=== PATIENT | female | born 1950 | race Caucasian/White ===

== ENCOUNTER 2016-07-17 13:42 | Outpatient (CLI) ==
[2013-11-17 13:44] VITALS: BMI 51.1
--- NOTE | 2016-07-17 16:09 | US ---
Examination: Lacy-scale and real-time color Doppler imaging of the right lower extremity venous str uctures to rule out deep venous thrombosis. Comparison: 04/23/2011. Reason for study: Right leg pain and swelling. FINDINGS: There is spontaneous flow with respiratory augmentation and venous compression seen withi n the right common femoral, greater saphenous, profunda, superficial femoral, popliteal, and peronea l veins. The posterior tibial and anterior tibial veins were not identified secondary to patient's body habit us and edema. Impression: 1. No evidence of deep venous thrombosis in the visualized right lower extremity deep venous system. 2. The posterior tibial and anterior tibial veins were not identified secondary to the patient's kady dy habitus and edema. Cannot rule out the possibility of deep venous thrombus within those two stru ctures.
== END 2016-07-17 13:43 | disposition home or self-care (01) ==
LOC: RAD 13:42
DX: M79.89 Other specified soft tissue disorders (principal)

== ENCOUNTER 2016-07-25 16:01 | Emergency (ER) ==
--- NOTE | 2016-07-25 16:13 | ED.PDOC ---
General ED Provider: Dr. MARILY CALDERON JR Chief Complaint: Back Pain Stated Complaint: Lumbar pain rt side. Radiates down rt leg. Pt staes "It's sciatica." Has tramodol at home. Not helping.[ End ]98.5 77 20 95% 157/93 . tramadol at 1220 5 days of pain right sciatic radiation has had intermittent symptoms on left not treated called PMD no benefit one flexeril no benefit tramadol MRI not yet scheduled unable to hold still for mr of right leg - when at dentist Lortab ineffective for pain Time Seen by Physician: 16:13 Mode of Arrival: Walk-In Information Source: Patient Exam Limitations: No limitations Primary Care Provider: RAQUEL BECKER Nursing and Triage Documentation Reviewed and Agree: No Review of Systems - Review Of Systems Constitutional: Reports: Malaise Eyes: Reports: No symptoms Ears, Nose, Mouth, Throat: Reports: No symptoms Respiratory: Reports: No symptoms Cardiac: Reports: No symptoms GI: Reports: No symptoms : Reports: No symptoms Musculoskeletal: Reports: Other (pain and burning down righ tleg no rash negative straight leg raise) Skin: Reports: No symptoms Neurological: Reports: Other (pain with use or right leg ) Endocrine: Reports: No symptoms Hematologic/Lymphatic: Reports: No symptoms All Other Systems: Other Past Medical History - Past Medical History Endocrine: Reports: DM 2 Cardiovascular: Reports: Hypertension Respiratory: Reports: None Hematological: Reports: None Gastrointestinal: Reports: None Genitourinary: Reports: None Neuro/Psych: Reports: Anxiety, Depression Musculoskeletal: Reports: Arthritis Cancer: Reports: None Last Menstrual Period: unknown - Surgical History General Surgical History: Reports: None - Family History Family History: Reports: Unknown - Social History Smoking Status: Current every day smoker, Heavy tobacco smoker Hx Substance Use: No Alcohol Screening: None Physical Exam - Physical Exam Appearance: Well-appearing, Obese Pain Distress: Moderate Eyes: KRISTINE, EOMI, Conjunctiva clear Neck: Supple Respiratory: Airway patent Cardiovascular: RRR Musculoskeletal: Normal strength, ROM intact, No edema, No calf tenderness Skin: Warm, Dry, Normal color Neurological: Sensation intact, Motor intact, Reflexes intact, Cranial nerves intact, Alert, Oriented Critical Care Note - Critical Care Note Total Time (mins): 0 Course - Course Orders, Labs, Meds: Orders Category Date Time Status Hydromorphone HCl/Pf [Dilaudid 2 mg/ml Syringe] MEDS 07/25/16 17:58 Discontinued 2 mg IM ONCE STA Morphine Sulfate [Morphine 4 mg/ml Syringe] MEDS 07/25/16 17:14 Discontinued 4 mg IM ONCE STA Orphenadrine Citrate [Norflex] MEDS 07/25/16 16:28 Discontinued 60 mg IM ONCE STA Medications Discontinued Medications Generic Name Dose Route Start Last Admin Trade Name Freq PRN Reason Stop Dose Admin Hydromorphone HCl 2 mg 07/25/16 17:58 07/25/16 18:20 Dilaudid 2 Mg/Ml Syringe IM 07/25/16 17:59 2 mg ONCE STA Administration Morphine Sulfate 4 mg 07/25/16 17:14 07/25/16 17:34 Morphine 4 Mg/Ml Syringe IM 07/25/16 17:15 4 mg ONCE STA Administration Orphenadrine Citrate 60 mg 07/25/16 16:28 07/25/16 16:38 Norflex IM 07/25/16 16:29 60 mg ONCE STA Administration Vital Signs: Temp Pulse Resp BP Pulse Ox 07/25/16 16:02 98.5 F 77 20 157/93 H 95 Departure - Departure Time of Disposition: 18:40 Disposition: HOME SELF-CARE Discharge Problem: Right leg pain Instructions: Leg Pain (ED), Sciatica (ED) Condition: Fair Pt referred to PMD for follow-up: Yes Additional Instructions: follow up with PMD referral to neurologist or neurosurgeon is through regular physician return if loss of bladder control unable to walk or fever over 101.0 call PMD on Wednesday Prescriptions: Hydrocodone Bit/Acetaminophen [Chester 5-325] 1 - 2 tab PO Q6HR PRN #12 tablet PRN Reason: pain Allergies/Adverse Reactions: Allergies bacitracin [From Neosporin ([id number])] Adverse Reaction (Verified 07/25/16 16:10) bacitracin zinc [From Neosporin (tyh-syt-lefhr)] Adverse Reaction (Verified 10/05 16:10) metformin Adverse Reaction (Verified 07/25/16 16:10) neomycin sulfate [From Neosporin (osz-ejo-gfycy)] Adverse Reaction (Verified 10/05 16:10) polymyxin B [From Neosporin ([id number]-nrw-qndlb)] Adverse Reaction (Verified 16:10) Home Medications: Ambulatory Orders Promethazine HCl [Phenergan Tab] 25 mg PO DAILY PRN 11/17/13 Hydrocodone Bit/Acetaminophen [Chester 5-325] 1 - 2 tab PO Q6HR PRN #12 tablet 10/05
[2016-07-25 16:17] VITALS: BP 157/93; TEMP 98.5; BMI 45.1
[2016-07-25] MEDS ORDERED: NORFLEX IM STA (16:28)
[2016-07-25] MEDS ORDERED: MORPHINE 4 MG/ML SYRINGE IM STA (17:14)
[2016-07-25] MEDS ORDERED: DILAUDID 2 MG/ML SYRINGE IM STA (17:58)
== END 2016-07-25 19:13 | disposition home or self-care (01) ==
LOC: ED 16:01
DX: M54.41 Lumbago with sciatica, right side (principal); I10 Essential (primary) hypertension; E11.9 Type 2 diabetes mellitus without complications; F17.210 Nicotine dependence, cigarettes, uncomplicated
CPT/HCPCS: 96372; 99282

== ENCOUNTER 2016-09-10 14:00 | Outpatient (RCR) ==
--- NOTE | 2016-08-28 10:51 | RS.OPPTEV2 ---
Date of Note: 08/26/16 Visit #: 1 Date of Evaluation: 08/26/16 Payer Source: Medicaid Date of Onset/Injury/Change in Status: 07/19/16 Treatment Diagnosis: lumbar radiculopathy History of Condition/Mechanism of Injury:: States she had an onset of severe pain on 07/19/16, with no known cause. Patient states she has had a history of back pain, but nothing that has affected her ability to walk or stand like this onset has. Prior Level of Function.....Patient was independent with: ADL's, Self Care, Caregiving, Ambulation/Mobility, Community Integration/Access Functional Limitations: Sleep, Self Care, ADL's, Reaching, Pushing, Pulling, Lifting, Carrying, Sitting, Standing, Bending, Squatting, Ambulation, Community Access/Integration Current Subjective/complaints:: Patient reports she has been unable to walk long distances or stand for a prolonged period of time without a walker since the intense pain started. Reports she has been to the ER three times because of the pain. Reports pain down the right LE. States she has had this type pain before, but not this bad. States right LE pain is not constant. Also has tingling/numbness into the right LE with pain. States she has to sleep in the recliner due to difficulty sleeping in bed. Reports her pain is less in sitting. States she does not have immediate pain with standing, but the longer she stands or walks the more pain she gets. She gets some relief with walker with a walker or bending over. She uses ice at home, which does help. She has a TENS unit. States she has a spot at her low back that feels like someone is digging into her. The TENS unit does help that discomfort temporarily. She has chronic LE edema. She wears compression socks. Reports right LE feels heavy. She describes difficulty lifting the right LE to get in the car. Medical History Medical History: Hypertension, Diabetes, Arthritis (spine knees, ankles) Smoking Status: Current every day smoker Diagnostic Testing/Imaging:: MRI lumbar spine 08/19/16. Impression: "1. 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 2. Disc degeneration, spondylosis, and facet arthropathy at L5-S1 with resulting foraminal narrowing. 3. disc degeneration at L4-5 with mild anterolisthesis of L4 on L5, with grade 1 spondylolisthesis. Relatively mild narrowing of the bony spinal canal w/o significant canal stenosis, facet arthropathy with foraminal narrowing. 4. Facet arthropathy at L3-L4 with relatively mild right sided foraminal narrowing. " Hx Home Medications: muscle relaxant, no other medications listed Patient's Goals: Her goal is to get relief of back and right LE pain. Pain Assessment - Pain Description Pain Location: low back, right side and down the leg. Pain Description: Radiating, Throbbing, Aching Current Pain Intensity: 5/10 Worst Pain Intensity: 10/10 Functional Outcome Measure Oswestry LBP: 70 - G Codes & Severity Modifier G Codes & Modifier: NA Source of G Code score: nA Observation - Observation Posture: Rounded Shoulders, Decreased Lumbar Lordosis Comments: right ankle valgus deformity BMI - BMI Weight: 300 lb Height: 5 ft 5 in BMI: 49.9 Gait - Gait Pattern Gait Comments: Patient able to ambulate a few steps to treatment table with PROPERTY ACCOUNTANT. Demonstrates flexed forward gait and difficulty advancing the right LE. General Range of Motion: Lumbar flexion ~50%, extension to neutral. Bilateral LE AROM is WFL's. Muscle Strength: Trunk strength 4/5. Left LE generally 4+/5. Right LE 4-/5 throughout. Special Tests: SLR in supine , right LE positive at approximately 30 degrees. Left SLR negative. Bilateral flexibility of HS in supine to 40 degrees. Palpation Comments:: Patient reports no tenderness along the lumbar paraspinals or over the SI joints. Sensation - Sensation Right Lower Extremity: Intact/Normal Left Lower Extremity: Intact/Normal - Treatment Modality: Electrical Stim Unattended Parameters/Method Applied: 2 large pads to right low back/SI region X 15 mins HVGS up to 220 peak volts. Patient Position: Sitting - Heat/Cryotherapy Treatment: Hot Pack (with Estim) Interventions - Exercise/Activities/Manual Therapy Exercises/Activities: No exercises given today Manual Therapy: NA - Charges Total Direct Minutes: 45 mins Total Treatment Time: 45 mins Procedures billed for this date of service:: TONJA Vazquez, Estim Assessment Assessment: Patient presents to therapy with a diagnosis of lumbar radiculopathy. She reports sciatic pain. Symptoms in the department today appear to be associated with the lumbar spine. She reports radiating pain into the right LE. States pain is the worst with prolonged standing and walking. She feels better if she walks with a walker to get relief of pressure off her back. States she does fine in sitting. Exhibits weakness in the right LE and reports difficulty raising the right LE to get it in a vehicle. She demonstrates potential to get relief of back and radiating pain with use of modalities, manual therapy, and exercises to stretch the HS and low back and strengthen the anterior spinal stability muscles. Patient Education: Education of diagnosis, Body/Joint mechanics, Home Exercise Program, Home Safety, Activity Modification, Education of Plan of Care Rehab Potential: Good Short Term Goals Goal #1: Right radiating pain localized to right buttock region. Goal to be met by: 09/11/16 Goal #2: Bilateral SLR to 50 degrees. Goal to be met by: 09/18/16 Goal #3: Pt able to amb. household distances w/o assistive device w/ min. discomfort Goal to be met by: 09/18/16 Goal #4: Pt to stand short periods of time to perform selfcare w/ min. discomfort. Goal to be met by: 09/18/16 Nursing Home Goals Goal #1: Pt knows HEP and to cont. exercises to maintain level of function at DC. Goal to be met by: 10/17/16 Goal #2: Score on Oswestry LBP scale improved to 40. Goal to be met by: 10/17/16 Goal #3: Pt able to amb. community distances w/o an assistive device. Goal to be met by: 10/17/16 Goal #4: Pt able to perform selfcare and light ADL's w/ min to no back or RLE pain. Goal to be met by: 10/17/16 Plan - Treatment to be Provided Procedures: Therapeutic Exercises, Therapeutic Activity, Patient Education Modalities: Electrical Stimulation, Ultrasound/Phonophoresis, Cryotherapy, Hot Packs - Treatment Plan Frequency: 3 X week Duration: 6 weeks ORDER # VISITS AND/OR THROUGH DATE: 10/17/16 - Treatment Code (1) Lumbar radiculopathy Comments: M54.16 (2) Gait abnormality Comments: R26.9 (3) Spondylisthesis Qualifiers: Spinal region: lumbar Qualified Description: Spondylolisthesis of lumbar region Qualifier Code(s): (M43.16) Spondylolisthesis, lumbar region
--- NOTE | 2016-08-28 15:51 | RS.OPPTDN ---
Subjective Date of Note: 08/28/16 Visit #: 2 Date of Evaluation: 08/26/16 Payer Source: Medicaid Treatment Diagnosis: lumbar radiculopathy Current Subjective/complaints:: Patient enters clinic via w/c due to pain .She reports her legs are bothering her more today than her back. Pain Assessment - Pain Description Pain Location: low back, right side and down the leg. Pain Description: Radiating, Throbbing, Aching Current Pain Intensity: 5/10 - Treatment Modality: Electrical Stim Unattended Parameters/Method Applied: 20 mins. high volt to lumbar and R upper gluteal area ,channel 1 @ 240 pv,channel 2 @ 415 pv. Patient Position: Sitting - Heat/Cryotherapy Treatment: Hot Pack (concurrent with e-stim) Interventions - Exercise/Activities/Manual Therapy Exercises/Activities: 25 mins. total of instruction in SKTC,piriformis stretches , 90/90 hamstring stretches,body mechanics,and pain control. Total minutes of Exercise: 25 Manual Therapy: NA Total minutes of Manual Therapy: 0 - Charges Total Direct Minutes: 25 Total Treatment Time: 45 Procedures billed for this date of service:: hp,e-stim,ex 2 Assessment: Patient reports relief with doing knees to chest exercises.She is very attentive to recommendations for her care.She reports flexion is more relief as opposed to trunk extension. Patient Education: Education of diagnosis, Body/Joint mechanics, Home Exercise Program, Home Safety, Activity Modification, Education of Plan of Care Short Term Goals Goal #1: Right radiating pain localized to right buttock region. Goal to be met by: 09/11/16 Goal #2: Bilateral SLR to 50 degrees. Goal to be met by: 09/18/16 Goal #3: Pt able to amb. household distances w/o assistive device w/ min. discomfort Goal to be met by: 09/18/16 Goal #4: Pt to stand short periods of time to perform selfcare w/ min. discomfort. Goal to be met by: 09/18/16 Care Home Goals Goal #1: Pt knows HEP and to cont. exercises to maintain level of function at DC. Goal to be met by: 10/17/16 Goal #2: Score on Oswestry LBP scale improved to 40. Goal to be met by: 10/17/16 Goal #3: Pt able to amb. community distances w/o an assistive device. Goal to be met by: 10/17/16 Goal #4: Pt able to perform selfcare and light ADL's w/ min to no back or RLE pain. Goal to be met by: 10/17/16 Plan PLAN OF CARE EXPIRES ON:: 10/17/16 ORDER # VISITS AND/OR THROUGH DATE: 10/17/16 PLAN: Continue Plan of Care
--- NOTE | 2016-09-01 15:11 | RS.OPPTDN ---
Subjective Date of Note: 09/01/16 Visit #: 3 Date of Evaluation: 08/26/16 Payer Source: Medicaid Treatment Diagnosis: lumbar radiculopathy Current Subjective/complaints:: Patient reports the exercises did not elevate the back pain ,but caused the R knee arthritic pain to increase over the weekend. Pain Assessment - Pain Description Pain Location: low back, right side and down the leg. Pain Description: Radiating, Throbbing, Aching Current Pain Intensity: 4/10 - Treatment Modality: Electrical Stim Unattended Parameters/Method Applied: 20 mins. high volt to lumbar,channel 1 @ 185 pv, channel 2 @ 240 pv. Patient Position: Sitting - Heat/Cryotherapy Treatment: Hot Pack (concurrent with e-stim) Interventions - Exercise/Activities/Manual Therapy Exercises/Activities: 20 mins. total of instruction in SKTC,piriformis stretches , 90/90 hamstring stretches. Total minutes of Exercise: 20 Manual Therapy: NA Total minutes of Manual Therapy: 0 HOME EXERCISE PROGRAM: SKTC,90/90 hamstring stretches,piriformis stretches, lower trunk rotation as tolerated. - Charges Total Direct Minutes: 20 Total Treatment Time: 40 Procedures billed for this date of service:: hp,e-stim,ex 1 Assessment: Patient reports the back feels better since beginning therapy.The R LE/hip is tighter than the L,has some difficulty with R hamstring stretches due to the R knee pain.Her bed mobility is improved ,with less assist to transfer. Patient Education: Education of diagnosis, Body/Joint mechanics, Home Exercise Program, Home Safety, Activity Modification, Education of Plan of Care Patient demonstrates compliance with HEP?: Yes Short Term Goals Goal #1: Right radiating pain localized to right buttock region. Goal to be met by: 09/11/16 Progress towards Goal:: Progressing Goal #2: Bilateral SLR to 50 degrees. Goal to be met by: 09/18/16 Goal #3: Pt able to amb. household distances w/o assistive device w/ min. discomfort Goal to be met by: 09/18/16 Goal #4: Pt to stand short periods of time to perform selfcare w/ min. discomfort. Goal to be met by: 09/18/16 Senior Care Goals Goal #1: Pt knows HEP and to cont. exercises to maintain level of function at DC. Goal to be met by: 10/17/16 Progress towards goal: Progressing Goal #2: Score on Oswestry LBP scale improved to 40. Goal to be met by: 10/17/16 Goal #3: Pt able to amb. community distances w/o an assistive device. Goal to be met by: 10/17/16 Goal #4: Pt able to perform selfcare and light ADL's w/ min to no back or RLE pain. Goal to be met by: 10/17/16 Plan PLAN OF CARE EXPIRES ON:: 10/17/16 ORDER # VISITS AND/OR THROUGH DATE: 10/17/16 PLAN: Continue Plan of Care
--- NOTE | 2016-09-03 14:55 | RS.CXNS ---
Date of scheduled appointment: 09/03/16 Type: Cancel
--- NOTE | 2016-09-08 15:27 | RS.OPPTDN ---
Subjective Date of Note: 09/08/16 Visit #: 4 Date of Evaluation: 08/26/16 Payer Source: Medicaid Treatment Diagnosis: lumbar radiculopathy Current Subjective/complaints:: Patient reports more soreness in the R hamstrings today,but feels the therapy is helping. Pain Assessment - Pain Description Pain Location: low back, right side and down the leg. Pain Description: Radiating, Throbbing, Aching Current Pain Intensity: 6/10 - Treatment Modality: Electrical Stim Unattended Parameters/Method Applied: 20 mins. high volt,to lumbar ,channel 1 @ 235 pv, channel 2 @ 205 pv. Patient Position: Sitting - Heat/Cryotherapy Treatment: Hot Pack (concurrent with e-stim) Interventions - Exercise/Activities/Manual Therapy Exercises/Activities: 25 mins. total SKTC,DKTC,piriformis stretches, 90/90 hamstring stretches,IT band stretches. Total minutes of Exercise: 25 Manual Therapy: NA Total minutes of Manual Therapy: 0 HOME EXERCISE PROGRAM: SKTC,90/90 hamstring stretches,piriformis stretches, lower trunk rotation as tolerated. - Charges Total Direct Minutes: 25 Total Treatment Time: 45 Procedures billed for this date of service:: hp,e-stim, ex Assessment: Patient tolerates stretches fairly well,does have R knee pain due to arthritis in the knee as she does SKTC or DKTC.She requires less assist for transfers after PT session,but has antalgic gait and chronic R knee instability. Patient Education: Education of diagnosis, Body/Joint mechanics, Home Exercise Program, Home Safety, Activity Modification, Education of Plan of Care Patient demonstrates compliance with HEP?: Yes Short Term Goals Goal #1: Right radiating pain localized to right buttock region. Goal to be met by: 09/11/16 Progress towards Goal:: Progressing Goal #2: Bilateral SLR to 50 degrees. Goal to be met by: 09/18/16 Goal #3: Pt able to amb. household distances w/o assistive device w/ min. discomfort Goal to be met by: 09/18/16 Progress towards Goal:: Progressing Goal #4: Pt to stand short periods of time to perform selfcare w/ min. discomfort. Goal to be met by: 09/18/16 Half-Way Goals Goal #1: Pt knows HEP and to cont. exercises to maintain level of function at DC. Goal to be met by: 10/17/16 Progress towards goal: Progressing Goal #2: Score on Oswestry LBP scale improved to 40. Goal to be met by: 10/17/16 Goal #3: Pt able to amb. community distances w/o an assistive device. Goal to be met by: 10/17/16 Goal #4: Pt able to perform selfcare and light ADL's w/ min to no back or RLE pain. Goal to be met by: 10/17/16 Plan PLAN OF CARE EXPIRES ON:: 10/17/16 ORDER # VISITS AND/OR THROUGH DATE: 10/17/16 PLAN: Continue Plan of Care
--- NOTE | 2016-09-10 16:22 | RS.OPPTDN ---
Subjective Date of Note: 09/10/16 Visit #: 5 Date of Evaluation: 08/26/16 Payer Source: Medicaid Treatment Diagnosis: lumbar radiculopathy Current Subjective/complaints:: Reports her R hamstrings are very sore,feels this is due to the stretching.She does feel her back is better.We discussed not doing the hamstring stretches today,allowing time for her soreness to decrease. Pain Assessment - Pain Description Pain Location: low back, right side and down the leg. Pain Description: Radiating, Throbbing, Aching Current Pain Intensity: not rated today - Treatment Modality: Electrical Stim Unattended Parameters/Method Applied: 20 mins. high volt to lumbar,channel 1 @ 235,channel 2 @ 250 pv. Patient Position: Sitting - Heat/Cryotherapy Treatment: Hot Pack (concurrent with e-stim) Interventions - Exercise/Activities/Manual Therapy Exercises/Activities: 35 mins. total SKTC,DKTC,piriformis stretches, 90/90 hamstring stretches,IT band stretches.Patient education for body mechanics, joint protection. Total minutes of Exercise: 35 Manual Therapy: NA Total minutes of Manual Therapy: 0 HOME EXERCISE PROGRAM: SKTC,90/90 hamstring stretches,piriformis stretches, lower trunk rotation as tolerated. - Charges Total Direct Minutes: 35 Total Treatment Time: 55 Procedures billed for this date of service:: hp,e-stim,ex 2 Assessment: Patient has improved lumbar flexibility with less pain today, reports relief after stretches.She does have steadier transfers from w/c to therapy mat with less assistance.She is attentive to HEP recommendations. Patient Education: Education of diagnosis, Body/Joint mechanics, Home Exercise Program, Home Safety, Activity Modification, Education of Plan of Care Patient demonstrates compliance with HEP?: Yes Short Term Goals Goal #1: Right radiating pain localized to right buttock region. Goal to be met by: 09/11/16 Progress towards Goal:: Progressing Goal #2: Bilateral SLR to 50 degrees. Goal to be met by: 09/18/16 (SLR elicits pain today) Goal #3: Pt able to amb. household distances w/o assistive device w/ min. discomfort Goal to be met by: 09/18/16 Progress towards Goal:: Progressing Goal #4: Pt to stand short periods of time to perform selfcare w/ min. discomfort. Goal to be met by: 09/18/16 Progress towards Goal:: Progressing Stitchdown Thread Laster Goals Goal #1: Pt knows HEP and to cont. exercises to maintain level of function at DC. Goal to be met by: 10/17/16 Progress towards goal: Partially Met Goal #2: Score on Oswestry LBP scale improved to 40. Goal to be met by: 10/17/16 Goal #3: Pt able to amb. community distances w/o an assistive device. Goal to be met by: 10/17/16 Goal #4: Pt able to perform selfcare and light ADL's w/ min to no back or RLE pain. Goal to be met by: 10/17/16 Plan PLAN OF CARE EXPIRES ON:: 10/17/16 ORDER # VISITS AND/OR THROUGH DATE: 10/17/16 PLAN: Continue Plan of Care
--- NOTE | 2016-09-17 09:20 | RS.CXNS ---
Date of scheduled appointment: 09/15/16 Type: Cancel (sick)
--- NOTE | 2016-09-17 09:21 | RS.CXNS ---
Date of scheduled appointment: 09/17/16 Type: Cancel (Called ,still sick.)
== END 2016-09-18 ==
PROVIDERS: ATTEND Psychiatry & Neurology Neurology
DX: M54.16 Radiculopathy, lumbar region (principal)

== ENCOUNTER 2016-09-29 14:00 | Outpatient (RCR) ==
--- NOTE | 2016-09-22 14:58 | RS.OPPTDN ---
Subjective Date of Note: 09/22/16 Visit #: 6 Date of Evaluation: 08/26/16 Payer Source: Medicaid Treatment Diagnosis: lumbar radiculopathy Current Subjective/complaints:: Reports the back is feeling better,but still having pain in the r hamstrings. Pain Assessment - Pain Description Pain Location: lumbar and R posterior thigh Pain Description: Radiating, Aching Current Pain Intensity: not rated today - Treatment Modality: Electrical Stim Unattended Parameters/Method Applied: 20 mins. high volt to lumbar ,channel 1 @155 pv. channel 2 @ 245pv. Patient Position: Sitting - Heat/Cryotherapy Treatment: Hot Pack (concurrent with e-stim) Interventions - Exercise/Activities/Manual Therapy Exercises/Activities: 35 mins. total ,pelvci tilt. SKTC,DKTC,piriformis stretches, 90/90 hamstring stretches,.Patient and spouse instructed in using sheet or towel to assist for proper stretches. Total minutes of Exercise: 35 Manual Therapy: NA Total minutes of Manual Therapy: 0 HOME EXERCISE PROGRAM: SKTC,90/90 hamstring stretches,piriformis stretches, lower trunk rotation as tolerated. - Charges Total Direct Minutes: 35 Total Treatment Time: 55 Procedures billed for this date of service:: hp,e-stim,ex 2 Assessment: Patient and her spouse understanding the techniques of stretching at home with use of a sheet or towel.She reports the back feels better,but the R posterior thigh remains painful.She understands to do exercises in PAIN FREE ROM. Patient Education: Education of diagnosis, Body/Joint mechanics, Home Exercise Program, Home Safety, Activity Modification, Education of Plan of Care Patient demonstrates compliance with HEP?: Yes Short Term Goals Goal #1: Right radiating pain localized to right buttock region. Goal to be met by: 09/11/16 Progress towards Goal:: No Change Goal #2: Bilateral SLR to 50 degrees. Goal to be met by: 09/18/16 Progress towards Goal:: Not Met Goal #3: Pt able to amb. household distances w/o assistive device w/ min. discomfort Goal to be met by: 09/18/16 Progress towards Goal:: Progressing Goal #4: Pt to stand short periods of time to perform selfcare w/ min. discomfort. Goal to be met by: 09/18/16 Progress towards Goal:: Progressing Siding Mechanic Goals Goal #1: Pt knows HEP and to cont. exercises to maintain level of function at DC. Goal to be met by: 10/17/16 Progress towards goal: Partially Met Goal #2: Score on Oswestry LBP scale improved to 40. Goal to be met by: 10/17/16 Goal #3: Pt able to amb. community distances w/o an assistive device. Goal to be met by: 10/17/16 Goal #4: Pt able to perform selfcare and light ADL's w/ min to no back or RLE pain. Goal to be met by: 10/17/16 Plan PLAN OF CARE EXPIRES ON:: 10/17/16 ORDER # VISITS AND/OR THROUGH DATE: 10/17/16 PLAN: Continue Plan of Care
--- NOTE | 2016-09-29 15:50 | RS.OPPTDN ---
Subjective Date of Note: 09/29/16 Visit #: 7 Date of Evaluation: 08/26/16 Payer Source: Medicaid Treatment Diagnosis: lumbar radiculopathy Current Subjective/complaints:: Patient reports the back feels better today,but has the R hamstring soreness and sciatica present. Pain Assessment - Pain Description Pain Location: lumbar and R posterior thigh Pain Description: Radiating, Aching Current Pain Intensity: not rated today - Heat/Cryotherapy Treatment: Hot Pack (20 mins.) Interventions - Exercise/Activities/Manual Therapy Exercises/Activities: 30 mins. total ,pelvic tilt. SKTC,DKTC,piriformis stretches, 90/90 hamstring stretches.HEP review,body mechanics. Total minutes of Exercise: 30 Manual Therapy: NA Total minutes of Manual Therapy: 0 HOME EXERCISE PROGRAM: SKTC,90/90 hamstring stretches,piriformis stretches, lower trunk rotation as tolerated. - Charges Total Direct Minutes: 30 Total Treatment Time: 50 Procedures billed for this date of service:: hp,ex 2 Assessment: Patient has improved hamstring extensibility,less lumbar pain, reports relief from sciatic pain after R piriformis stretches today. Patient Education: Education of diagnosis, Body/Joint mechanics, Home Exercise Program, Home Safety, Activity Modification, Education of Plan of Care Patient demonstrates compliance with HEP?: Yes (Difficult due to pain.) Short Term Goals Goal #1: Right radiating pain localized to right buttock region. Goal to be met by: 09/11/16 Progress towards Goal:: Progressing Goal #2: Bilateral SLR to 50 degrees. Goal to be met by: 09/18/16 (unable to do safe SLR) Progress towards Goal:: Not Met Goal #3: Pt able to amb. household distances w/o assistive device w/ min. discomfort Goal to be met by: 09/18/16 Progress towards Goal:: Progressing Goal #4: Pt to stand short periods of time to perform selfcare w/ min. discomfort. Goal to be met by: 09/18/16 Progress towards Goal:: Progressing Penitentiary Goals Goal #1: Pt knows HEP and to cont. exercises to maintain level of function at DC. Goal to be met by: 10/17/16 Progress towards goal: Partially Met Goal #2: Score on Oswestry LBP scale improved to 40. Goal to be met by: 10/17/16 Goal #3: Pt able to amb. community distances w/o an assistive device. Goal to be met by: 10/17/16 Progress towards goal: No Change Goal #4: Pt able to perform selfcare and light ADL's w/ min to no back or RLE pain. Goal to be met by: 10/17/16 Plan PLAN OF CARE EXPIRES ON:: 10/17/16 ORDER # VISITS AND/OR THROUGH DATE: 10/17/16 PLAN: Continue Plan of Care
--- NOTE | 2016-10-01 15:04 | RS.QUICKDC ---
Discharge from PT Date of Discharge: 09/25/16 Number of Visits: 7 Reason for Discharge: Patient was scheduled today,but called and feels that the therapy had minimally helped,but no significant change,requests to go ahead and stop therapy today.
== END 2016-10-18 ==
PROVIDERS: ATTEND Psychiatry & Neurology Neurology
DX: M54.16 Radiculopathy, lumbar region (principal)

== ENCOUNTER 2017-10-04 15:34 | Outpatient (CLI) | payer OTHER | END 2017-10-04 15:35 | disposition home or self-care (01) | LOC: LAB 15:34 | PROVIDERS: ATTEND Nurse Practitioner | DX: R94.6 Abnormal results of thyroid function studies (principal) | CPT/HCPCS: 36415; 84439; 84443; 84480 ==